=== PATIENT | male | born 1980 | race Caucasian/White ===

== ENCOUNTER 2017-07-29 07:56 | Emergency (ER) | payer MEDICAID ==
[~2017-07-29] VITALS: Ht 175.3 cm; Wt 113.0 kg
[2017-07-29 08:03] VITALS: BP 162/89
[2017-07-29] MEDS ORDERED: CYCL-1 PO (08:26)
[2017-07-29] MEDS ORDERED: ketorolac trometh inj. 60 MG/2 ML VIAL IM ONE (08:30)
[2017-07-29] MEDS ORDERED: orphenadrine citrate 60mg/2ml inj. IM ONE (08:30)
== END 2017-07-29 09:03 | disposition home or self-care (01) ==
LOC: ER 07:57
DX: S29.019A Strain of muscle and tendon of unspecified wall of thorax, initial encounter (principal); S39.012A Strain of muscle, fascia and tendon of lower back, initial encounter; S46.911A Strain of unspecified muscle, fascia and tendon at shoulder and upper arm level, right arm, initial encounter; V29.9XXA Motorcycle rider (driver) (passenger) injured in unspecified traffic accident, initial encounter; Y93.89 Activity, other specified; Y92.89 Other specified places as the place of occurrence of the external cause; Y99.8 Other external cause status
CPT/HCPCS: 99283

== ENCOUNTER 2018-03-16 03:07 | Emergency (ER) | payer MEDICAID ==
[~2018-03-16] VITALS: Ht 172.7 cm; Wt 124.7 kg
[~2018-03-16 03:07] MED LIST: CYCL-1 PO
[2018-03-16 03:18] VITALS: BP 174/96
[2018-03-16] MEDS ORDERED: BENZ-16 PO (03:29)
== END 2018-03-16 03:38 | disposition home or self-care (01) ==
LOC: ER 03:08
DX: J22 Unspecified acute lower respiratory infection (principal); Z79.899 Other long term (current) drug therapy
CPT/HCPCS: 99283